=== PATIENT | female | born 1960 | race Caucasian/White ===

== ENCOUNTER 2017-07-03 07:39 | Emergency (ER) | payer BC ==
[2017-07-03 07:55] VITALS: BP 138/71
[2017-07-03] MEDS ORDERED: Nitroglycerin TAB 0.4 MG* 0.4 MG TAB SL ONE (08:14)
--- NOTE | 2017-07-03 08:15 | UC ---
Cardiac HPI - HPI Summary HPI Summary: 56 yo female was awaken with severe SSCP arounde 6am associated with nausea no SOB dry heaves GB absent pain currently08/21 She took 4 baby ASA at home around 6am - History of Current Complaint Chief Complaint: UCChestPain Stated Complaint: CHEST PAIN NAUSEA Time Seen by Provider: 07/03/17 07:39 Hx Obtained From: Patient Onset/Duration: Sudden Onset, Lasting Hours Timing: Constant Initial Severity: Severe Current Severity: Mild Pain Intensity: 4 Chest Pain Location: Mid Sternal Character: Heaviness, Pressure/Squeezing Aggravating Factor(s): Nothing Alleviating Factor(s): Nothing Associated Signs & Symptoms: Positive: Chest Pain, Nausea/Vomiting - no vomiting - Allergy/Home Medications Allergies/Adverse Reactions: Allergies Allergy/AdvReac Type Severity Reaction Status Date / Time sulfamethoxazole Allergy Intermediate Hives Verified 07/03/17 07:55 [From ] trimethoprim [From ] Allergy Intermediate Hives Verified 07/03/17 07:55 Home Medications: Home Medications Acetaminophen [Tylenol Arthritis] 2 tab PO BID 07/03/17 [History Confirmed 07/03] Aspirin 4 tab PO ONCE 07/03/17 [History Confirmed 07/03/17] Estradiol [Minivelle] 0.05 mg TRANSDERM SEE INSTRUCTIONS 07/03/17 [History Confirmed 07/03/17] Multivit-Minerals/Folic Acid [Adult Multi Gummies] 1 tab PO DAILY 07/03/17 [ History Confirmed 07/03/17] PMH/Surg Hx/FS Hx/Imm Hx Previously Healthy: Yes - Surgical History Surgical History: Yes Surgery Procedure, Year, and Place: hysterectomy 8 years ago. gallbladder removed - Family History Known Family History: Positive: Cardiac Disease, Hypertension, Diabetes - Social History Alcohol Use: Rare Substance Use Type: None Smoking Status (MU): Never Smoked Tobacco - Immunization History Most Recent Tetanus Shot: UTD Review of Systems Constitutional: Negative Skin: Negative Eyes: Negative ENT: Negative Respiratory: Negative Cardiovascular: Chest Pain Gastrointestinal: Nausea Genitourinary: Negative Motor: Negative Neurovascular: Negative Musculoskeletal: Negative Neurological: Negative Psychological: Negative Is Patient Immunocompromised?: No All Other Systems Reviewed And Are Negative: Yes Physical Exam Triage Information Reviewed: Yes Appearance: Well-Appearing, No Pain Distress, Well-Nourished Vital Signs: Initial Vital Signs Temp 98.4 F 07/03/17 07:50 Pulse 80 07/03/17 07:50 Resp 22 07/03/17 07:50 BP 138/71 07/03/17 07:50 Pulse Ox 98 07/03/17 07:50 Vital Signs Reviewed: Yes Eyes: Positive: Conjunctiva Clear ENT: Positive: Hearing grossly normal, Uvula midline. Negative: Nasal congestion, Nasal drainage, Trismus, Muffled voice, Hoarse voice Neck: Positive: Supple, Nontender Respiratory: Positive: Chest non-tender, Lungs clear, Normal breath sounds, No respiratory distress Cardiovascular: Positive: RRR, No Murmur Abdomen Description: Positive: Nontender, No Organomegaly, Soft Bowel Sounds: Positive: Present Musculoskeletal: Positive: ROM Intact, No Edema Neurological Exam: Normal Neurological: Positive: Alert Psychological Exam: Normal Skin Exam: Normal Diagnostics - EKG Cardiac Rate: NL Cardiac Rhythm: Sinus: Normal Ectopy: None ST Segment: Normal - Assessment/Plan Course Of Treatment: [facility] notified. to [facility] ED via EMS. D/W Dr. Rena Levine - Clinical Impression Provider Diagnoses: acute chest pain of uncertain cause Discharge - Discharge Plan Condition: Stable Disposition: [facility] Referrals: Cabrera Goldstein MD [Primary Care Provider] -
== END 2017-07-03 08:25 | disposition short-term general hospital (02) ==
LOC: UCEAST 07:39
DX: R07.89 Other chest pain (principal); R11.0 Nausea; Z90.49 Acquired absence of other specified parts of digestive tract; Z90.710 Acquired absence of both cervix and uterus; Z88.2 Allergy status to sulfonamides
CPT/HCPCS: 93005; 99213; A9270-GY; G0463

== ENCOUNTER 2017-07-03 08:45 | Observation (INO) | payer BC ==
[2017-07-03 09:19] LABS: ABS Basophils 0.1 10^3/ul (0-0.2); ABS Eosinophils 0.1 10^3/ul (0-0.6); ABS Lymphocytes 0.8 10^3/ul (1.0-4.8); ABS Neutrophils 16.7 10^3/ul (1.5-7.7); ABS Nucleated RBC 0 10^3/ul; Eosinophil % 0.8 % (0-6); Hematocrit 43 % (35-47); Hemoglobin 14.6 g/dl (12.0-16.0); Lymphocyte % 4.5 % (25-47); Mean Corpuscular HGB Conc 34 g/dl (31-36); Mean Corpuscular Hemoglobin 30 pg (27-31); Mean Corpuscular Volume 88 fL (80-97); Mean Platelet Volume 9 um3 (7.4-10.4); Nucleated Red Blood Cells % 0; Platelet Count 275 10^3/ul (150-450); Red Cell Distribution Width 13 % (10.5-15); White Blood Count 18.7 10^3/ul (3.5-10.8)
[2017-07-03 09:38] LABS: EGFR Non-African American 77.5 (>60); INR 0.87 (0.77-1.02)
--- NOTE | 2017-07-03 10:22 | RAD ---
INDICATION: Chest pain. COMPARISON: There are no prior studies available for comparison. TECHNIQUE: A portable view of the chest was obtained. FINDINGS: Cardiac and mediastinal contours appear to be within normal limits. The lungs are clear. No pleural effusion is seen. IMPRESSION: NO EVIDENCE FOR ACUTE DISEASE.
[2017-07-03] MEDS ORDERED: Albuterol 2.5 MG/3 ML NEB.SOL* (0.083%) INH PRN (10:42)
[2017-07-03] MEDS ORDERED: Al Hydrox/Mg Hydrox/Simet LIQ* 30 ML UDC PO PRN (10:42)
[2017-07-03] MEDS ORDERED: Acetaminophen TAB* 325 MG PO PRN (10:42)
[2017-07-03] MEDS ORDERED: Enoxaparin(*) 40 MG/0.4 ML SYR SUBCUT SCH (11:00)
[2017-07-03] MEDS ORDERED: Estradiol PATCH 0.05MG/DAY* 1 PATCH TRANSDERM SCH (13:00)
--- NOTE | 2017-07-03 13:18 | HP ---
CC: Dr. Cabrera Goldstein * HISTORY AND PHYSICAL: DATE OF ADMISSION: 07/03/17 TIME OF ADMISSION: 11 a.m. PRIMARY CARE PHYSICIAN: Dr. Goldstein. CHIEF COMPLAINT: Chest pain. HISTORY OF PRESENT ILLNESS: This is a 56-year-old female who presents from home with sudden onset of chest pain that woke her from sleep this morning at 6 a.m. She has never had pain like this before. She describes it as sharp pain in the middle of her chest that is "shooting" in nature with radiation to both sides and to the left shoulder. She took four baby aspirins with minimal relief. The pain was associated with nausea and some dry heaves. It was unchanged with exertion; however, she did experience lightheadedness when she walks from the bed to the bathroom. She had no shortness of breath or palpitations associated with the pain. Her took her to urgent care where she received nitroglycerin, which caused the pain to subside. Currently, she has no pain; however, still feels some squeezing discomfort in her left breast. PAST MEDICAL HISTORY: 1. Current menopause, undergoing estrogen replacement therapy. 2. Osteoarthritis. 3. History of tendonitis in her shoulder that has since resolved. PAST SURGICAL HISTORY: She has had a hysterectomy and a cholecystectomy. HOME MEDICATIONS: 1. Estradiol patch 0.05 mg transdermally per day. 2. Tylenol 650 mg p.o. b.i.d. p.r.n. pain. ALLERGIES: BACTRIM. FAMILY HISTORY: Her mom had coronary stent at age 61. Her dad had some arrhythmia. SOCIAL HISTORY: She does not smoke and is a never smoker. She drinks 2 alcoholic beverages per month and she lives with her . REVIEW OF SYSTEMS: As per HPI, the remainder of 14-point review system is negative. PHYSICAL EXAMINATION GENERAL: Alert, well-appearing female, in no distress. VITAL SIGNS: Blood pressure 110/70, heart rate 74, pulse ox 100% on room air, temperature 98.4. HEENT: Pupils are 3 mm bilaterally and reactive to light. No nystagmus. Moist mucosa. Minimal pharyngeal erythema. No exudates. NECK: No JVP. No adenopathy. LUNGS: Clear bilaterally. Radial pulses are 2+ bilaterally. CHEST: Regular rate and rhythm. Nontender to palpation. PMI is nondisplaced. No rubs or murmurs. ABDOMEN: Soft, nontender, nondistended. Old laparoscopic incisions are well healed. No guarding or rebound. EXTREMITIES: Strength is 5+ throughout. No edema. No rashes. No ulcers. LABORATORY DATA: D-dimer less than 200. White blood cells 18.7 with 89% neutrophils, hemoglobin 14.6, platelets 275. Sodium 135, potassium 3.7, chloride 102, bicarb 25, BUN 17, creatinine 0.77, mag 2.0. Troponin 0.00. Chest x-ray, no infiltrates or effusions. EKG, normal sinus rhythm. Normal axis. Normal intervals. No ST or T-wave changes. ASSESSMENT AND PLAN: This is a 56-year-old female who is on estrogen replacement therapy and has no other medical history, presenting from home with chest pain that woke her from sleep this morning. 1. Atypical chest pain. Admit for acute coronary syndrome rule out to the telemetry unit. She needs 2 more troponins. Her EKG is nonischemic. She will be a good candidate for an exercise stress test and would be appropriate to have this done as an outpatient. 2. Leukocytosis. She has no infectious symptoms and it is unclear why she has this leukocytosis with 89% neutrophils. Check flu swab in case this is an atypical presentation with influenza. She has no other localizing infectious symptoms. 3. Estrogen replacement therapy. Her D-dimer is less than 200 ruling out thrombosis causing her chest pain. 4. Osteoarthritis. Continue Tylenol p.r.n. 5. DVT prophylaxis. She scores 2 on the DVT risk assessment, putting her at moderate risk, so she will be ordered for subcutaneous Lovenox. 6. Disposition. Admit to CDU for an ACS rule out. [id number]/[facility] #: [id number] NIRMAL
[2017-07-03 13:33] LABS: Urine Appearance Clear; Urine Blood Negative (Negative); Urine Color Yellow; Urine Ketones Negative (Negative); Urine Protein Negative (Negative); Urine Specific Gravity 1.016 (1.010-1.030); Urine Urobilinogen Negative (Negative)
[2017-07-03 15:41] VITALS: BP 112/57
--- NOTE | 2017-07-03 20:29 | ED ---
Gila Sue Thomas, scribed for Serenity Levine MD on 07/03/17 at 0851 . HPI Chest Pain - HPI Summary HPI Summary: The patient is a 56 year old female transferred from [facility] via EMS complaining of chest pain that began today at 06:00 when she woke up. The chest pain is substernal and radiates to her left and right chest. She describes the pain as tightness. The patient took four baby aspirins at home. At urgent care, the patient was given nitroglycerin, which greatly relieved her pain. Before nitroglycerin, the pain was rated 4-6/10. In the emergency department, her pain is 1/10. The patient is nauseous and she has been dry heaving. The patient denies diaphoresis, shortness of breath, and abdominal pain. Her PMD is Dr. Goldstein. She has never had a stress test. The patient is on hormone replacement for a prior hysterectomy. Pt's mother has a cardiac stent. - History of Current Complaint Hx Obtained From: Patient, Other: - Dr. Lopes (via phone from [facility] ) Onset/Duration: Started Hours Ago - onset today at 06:00, Still Present Time of Onset: 06:00 Timing: Constant Initial Severity: Moderate Current Severity: Moderate Pain Intensity: 1 Pain Scale Used: 0-10 Numeric Chest Pain Location: Discrete at: - Substernal Chest Pain Radiates: Yes Chest Pain Radiates To:: Other - Left and right chest Character: Tightness Aggravating Factor(s): Nothing Alleviating Factor(s): NTG 123 Associated Signs and Symptoms: Positive: Chest Pain, Nausea, Other: - Dry heaving; NEGATIVE: abdominal pain. Negative: Shortness of Breath, Diaphoresis - Allergy/Home Medications Allergies/Adverse Reactions: Allergies Allergy/AdvReac Type Severity Reaction Status Date / Time sulfamethoxazole Allergy Intermediate Hives Verified 07/03/17 07:55 [From ] trimethoprim [From ] Allergy Intermediate Hives Verified 07/03/17 07:55 Home Medications: Home Medications Estradiol PATCH 0.05MG/DAY* [Climara PATCH 0.05 MG/DAY*] 0.05 mg TRANSDERM .CHANGE TWICE WEEKLY 07/03/17 [History Confirmed 07/03/17] Multivitamins/Minerals TAB* [Theragran/minerals TAB*] 1 tab PO DAILY 07/03/17 [ History Confirmed 07/03/17] PMH/Surg Hx/FS Hx/Imm Hx Endocrine/Hematology History: Denies: Hx Diabetes, Hx Thyroid Disease Cardiovascular History: Denies: Hx Hypercholesterolemia, Hx Hypertension, Hx Myocardial Infarction Respiratory History: Denies: Hx Asthma GI History: Reports: Hx Gall Bladder Disease Musculoskeletal History: Reports: Hx Arthritis - Cancer History Hx Chemotherapy: No Hx Radiation Therapy: No - Surgical History Surgery Procedure, Year, and Place: Hysterectomy 8 years ago. Cholecystectomy - Family History Known Family History: Positive: Cardiac Disease, Hypertension, Diabetes - Social History Alcohol Use: Rare Substance Use Type: Reports: None Smoking Status (MU): Never Smoked Tobacco Review of Systems Negative: Fever, Skin Diaphoresis Positive: Chest Pain Negative: Shortness Of Breath Positive: Nausea, Other - Dry heaves. Negative: Abdominal Pain All Other Systems Reviewed And Are Negative: Yes Physical Exam - Summary Physical Exam Summary: Appearance: well-appearing, mild pain distress, Well-nourished Skin: Warm, color reflects adequate perfusion Head: Normal Head/Face inspection Eyes: Conjunctiva clear ENT: Normal inspection Neck: Supple, no nodes, no JVD. Respiratory: Lungs clear, Normal breath sounds, no respiratory distress Cardio: RRR, No murmur, pulses normal, brisk capillary refill Abdomen: soft, nontender Bowel sounds: present Musculoskeletal: Strength Intact/ ROM intact. No calf tenderness. No edema. Neuro: Alert, muscle tone normal, facial symmetry, speech normal, sensory/motor intact Psychological: Normal Triage Information Reviewed: Yes Vital Signs On Initial Exam: Initial Vitals Temp Pulse Resp BP Pulse Ox 98.4 F 80 17 118/62 99 07/03/17 08:51 07/03/17 08:51 07/03/17 08:51 07/03/17 08:51 07/03/17 08:51 Vital Signs Reviewed: Yes Diagnostics - Vital Signs Vital Signs Temp Pulse Resp BP Pulse Ox 07/03/17 10:30 74 18 110/70 100 07/03/17 10:00 81 16 129/68 98 07/03/17 09:30 74 30 115/64 100 07/03/17 09:00 76 16 98 07/03/17 08:56 78 23 98 07/03/17 08:55 98 07/03/17 08:51 98.4 F 80 17 118/62 99 - Laboratory Lab Results: Lab Results 07/03/17 07/03/17 07/03/17 Range/Units 09:04 09:04 09:04 WBC 18.7 H (3.5-10.8) 10^3/ul RBC 4.90 (4.0-5.4) 10^6/ul Hgb 14.6 (12.0-16.0) g/dl Hct 43 (35-47) % MCV 88 (80-97) fL MCH 30 (27-31) pg MCHC 34 (31-36) g/dl RDW 13 (10.5-15) % Plt Count 275 (150-450) 10^3/ul MPV 9 (7.4-10.4) um3 Neut % (Auto) 89.1 H (38-83) % Lymph % (Auto) 4.5 L (25-47) % Hart % (Auto) 5.2 (1-9) % Eos % (Auto) 0.8 (0-6) % Baso % (Auto) 0.4 (0-2) % Absolute Neuts (auto) 16.7 H (1.5-7.7) 10^3/ul Absolute Lymphs (auto) 0.8 L (1.0-4.8) 10^3/ul Absolute Monos (auto) 1.0 H (0-0.8) 10^3/ul Absolute Eos (auto) 0.1 (0-0.6) 10^3/ul Absolute Basos (auto) 0.1 (0-0.2) 10^3/ul Absolute Nucleated RBC 0 10^3/ul Nucleated RBC % 0 INR (Anticoag Therapy) (0.77-1.02) D-Dimer, Quantitative (Less Than 230) ng/mL Sodium 135 (133-145) mmol/L Potassium 3.7 (3.5-5.0) mmol/L Chloride 102 (101-111) mmol/L Carbon Dioxide 25 (22-32) mmol/L Anion Gap 8 (2-11) mmol/L BUN 17 (6-24) mg/dL Creatinine 0.77 (0.51-0.95) mg/dL Est GFR ( Amer) 99.7 (>60) Est GFR (Non-Af Amer) 77.5 (>60) BUN/Creatinine Ratio 22.1 H (8-20) Glucose 100 (70-100) mg/dL Lactic Acid (0.5-2.0) mmol/L Calcium 9.6 (8.6-10.3) mg/dL Magnesium 2.0 (1.9-2.7) mg/dL Total Bilirubin 0.80 (0.2-1.0) mg/dL AST 56 H (13-39) U/L ALT 52 (7-52) U/L Alkaline Phosphatase 61 (34-104) U/L Total Creatine Kinase 67 (10-223) U/L CK-MB (CK-2) 2.1 (0.6-6.3) ng/mL Troponin I 0.00 (<0.04) ng/mL B-Natriuretic Peptide 132 H ( - 100) pg/mL Total Protein 7.6 (6.4-8.9) g/dL Albumin 4.6 (3.2-5.2) g/dL Globulin 3.0 (2-4) g/dL Albumin/Globulin Ratio 1.5 (1-3) TSH 2.16 (0.34-5.60) mcIU/mL 07/03/17 07/03/17 Range/Units 09:04 09:04 WBC (3.5-10.8) 10^3/ul RBC (4.0-5.4) 10^6/ul Hgb (12.0-16.0) g/dl Hct (35-47) % MCV (80-97) fL MCH (27-31) pg MCHC (31-36) g/dl RDW (10.5-15) % Plt Count (150-450) 10^3/ul MPV (7.4-10.4) um3 Neut % (Auto) (38-83) % Lymph % (Auto) (25-47) % Hart % (Auto) (1-9) % Eos % (Auto) (0-6) % Baso % (Auto) (0-2) % Absolute Neuts (auto) (1.5-7.7) 10^3/ul Absolute Lymphs (auto) (1.0-4.8) 10^3/ul Absolute Monos (auto) (0-0.8) 10^3/ul Absolute Eos (auto) (0-0.6) 10^3/ul Absolute Basos (auto) (0-0.2) 10^3/ul Absolute Nucleated RBC 10^3/ul Nucleated RBC % INR (Anticoag Therapy) 0.87 (0.77-1.02) D-Dimer, Quantitative < 200 (Less Than 230) ng/mL Sodium (133-145) mmol/L Potassium (3.5-5.0) mmol/L Chloride (101-111) mmol/L Carbon Dioxide (22-32) mmol/L Anion Gap (2-11) mmol/L BUN (6-24) mg/dL Creatinine (0.51-0.95) mg/dL Est GFR ( Amer) (>60) Est GFR (Non-Af Amer) (>60) BUN/Creatinine Ratio (8-20) Glucose (70-100) mg/dL Lactic Acid 1.7 (0.5-2.0) mmol/L Calcium (8.6-10.3) mg/dL Magnesium (1.9-2.7) mg/dL Total Bilirubin (0.2-1.0) mg/dL AST (13-39) U/L ALT (7-52) U/L Alkaline Phosphatase (34-104) U/L Total Creatine Kinase (10-223) U/L CK-MB (CK-2) (0.6-6.3) ng/mL Troponin I (<0.04) ng/mL B-Natriuretic Peptide ( - 100) pg/mL Total Protein (6.4-8.9) g/dL Albumin (3.2-5.2) g/dL Globulin (2-4) g/dL Albumin/Globulin Ratio (1-3) TSH (0.34-5.60) mcIU/mL Result Diagrams: 07/03/17 09:04 07/03/17 09:04 Lab Statement: Any lab studies that have been ordered have been reviewed, and results considered in the medical decision making process. - Radiology CXR Xray Interpretation: No Acute Changes - NO EVIDENCE FOR ACUTE DISEASE. Dr. Levine has reviewed this report. Radiology Interpretation Completed By: Radiologist - EKG 08:49 Cardiac Rate: NL EKG Rhythm: Sinus Rhythm - (74 BPM) EKG Interpretation: Normal AVIVCT, normal QTc, and normal axis. EKG Comparison: No Significant Change - from EKG on 07/03/17, 07:42 Chest Pain Course/Dx - Course Course Of Treatment: The patient took four baby aspirins before presenting to urgent care, so no aspirin was given in the emergency department. Patients medications reviewed this visit. Allergies noted. Assessment/Plan: The patient is a 56 year old female presenting with chest pain described as tightness that woke her up this morning at 06:00. Nitroglycerin greatly relieved her pain, she is nauseous, and family history includes cardiac disease. The patient took four baby aspirins this morning, so the patient was not given aspirin in the emergency department. Bloodwork was obtained and it shows WBC 18.7, troponin 0.00, and BNP 132. An EKG at 08:49 shows sinus rhythm, normal AVIVCT, normal QTc, and normal axis. CXR was negative for acute disease. The patient is admitted to Dr. Kc, hospitalist, for observation and further workup. - Diagnoses Provider Diagnoses: Chest pain - Provider Notifications Discussed Care Of Patient With: Rachelle Kc Time Discussed With Above Provider: 10:08 Instructed by Provider To: Other - Dr. Kc, hospitalist, will admit the patient Discharge - Discharge Plan Condition: Stable Disposition: ADMITTED TO [facility] The documentation as recorded by the Gila garcia Thomas accurately reflects the service I personally performed and the decisions made by me, Serenity Levine MD.
[2017-07-04] MEDS ORDERED: Multivitamins/Minerals TAB PO SCH (09:00)
--- NOTE | 2017-07-04 22:23 | DS ---
CC: Dr. Cabrera Goldstein * DISCHARGE SUMMARY: DATE OF ADMISSION: 07/03/17 DATE OF DISCHARGE: 07/03/17 PRINCIPAL DISCHARGE DIAGNOSIS: Atypical chest pain. SECONDARY DISCHARGE DIAGNOSES: Osteoarthritis and estrogen replacement therapy. BRIEF HOSPITAL COURSE BY PROBLEM: 1. Atypical chest pain. Ms. Melo presented to the emergency department with chest pain that began at rest and was unchanged with exertion or position. Please see my history and physical for a complete description of her chest pain symptoms. She had no known risk factors for coronary artery disease and no family history of early cardiac . The only atypical feature of her chest pain was that it improved with nitroglycerin. She was admitted for an acute coronary syndrome rule out. She had 3 troponins and the results of her troponins were 0.00, 0.00, and 0.00. A D-dimer was checked given her hypercoagulable state on hormone replacement therapy and her D-dimer was less than 200. Given her low risk status from cardiac standpoint, she is a good candidate for an outpatient stress test, so I have ordered this for her and suggested that she follows up as such and she is agreeable to doing this. I suspect her pain was gastrointestinal in nature. Her EKG showed normal sinus rhythm, normal axis, normal intervals with no ST or T wave changes. 2. Leukocytosis. A basic infectious workup was completed with a negative influenza swab and negative urinalysis and a negative chest x-ray. Clinically, she had no infectious symptoms and no localizing sources of infection. 3. Menopause. Undergoing hormone replacement therapy. Her estradiol patch was continued. 4. Disposition. Ms. Melo was discharged to home on 07/03/17 with no chest pain after her troponins were ruled out x3. She will be scheduled for an outpatient stress test and is instructed to follow up with her primary care physician within 1 to 2 weeks. She is also instructed to return to the emergency department should she experience any further chest pain, shortness of breath, palpitations, lightheadedness, fevers, chills or other abnormal symptoms. [id number]/[facility] #: [id number] MTDD
== END 2017-07-03 18:15 | disposition home or self-care (01) ==
LOC: ED 08:45 → MEDTELE 10:42
PROVIDERS: ADMIT Internal Medicine; ATTEND Internal Medicine
DX: R07.89 Other chest pain (principal); R11.0 Nausea; Z78.0 Asymptomatic menopausal state; M19.90 Unspecified osteoarthritis, unspecified site; Z87.39 Personal history of other diseases of the musculoskeletal system and connective tissue; Z90.710 Acquired absence of both cervix and uterus; D72.829 Elevated white blood cell count, unspecified; Z79.890 Hormone replacement therapy
CPT/HCPCS: 36415; 71045; 80053; 81003; 82550; 82553; 83605; 83735; 83880; 84443; 84484; 85025; 85379; 85610; 87502; 93005; 99284; A9270-GY; G0378